=== PATIENT | male | born 1970 ===

== ENCOUNTER 2020-11-02 12:44 | Emergency (ER) | payer SELFPAY ==
--- NOTE | 2020-11-02 14:30 | Event Note ---
ED Screening Note ED Screening Note: Language line used for Portuguese interpretation Patient states that he went to a clinic due to having fatigue and generalized weakness for 15 days clinic: [facility] [place] He was sent by the clinic due to low hemoglobin and hematocrit He states during the last 2 weeks he has had chest pain twice but denies any chest pain currently He denies any fever, nausea, vomiting, diarrhea, cough, shortness of breath, hematochezia, melena, hematemesis, hematuria Past medical history of hypertension and previously used to take enalapril No allergies to medicines He is a non-smoker and nondrinker He has never been transfused in the past Hemoglobin on lab work report shows 5.9 This initial assessment/diagnostic orders/clinical plan/treatment(s) is/are subject to change based on patients health status, clinical progression and re- assessment by fellow clinical providers in the ED. Further treatment and workup at subsequent clinical providers discretion. Patient/guardian urged not to elope from the ED as their condition may be serious if not clinically assessed and managed. Initial orders include: Labs
[2020-11-02 15:33] LABS: Basophils % (Auto) 0.1 % (0.0-1.8); Eosinophils % (Auto) 0.5 % (0.0-4.3); Hematocrit 29.4 % (35.5-45.6); Hemoglobin 9.9 gm/dl (11.8-15.2); Lymphocytes # (Auto) 1.4 K/mm3 (1.2-5.4); Lymphocytes % (Auto) 22.3 % (13.4-35.0); Mean Corpuscular HGB Conc 34 % (32-34); Monocytes # (Auto) 0.3 K/mm3 (0.0-0.8); Monocytes % (Auto) 4.9 % (0.0-7.3); Platelet Count 161 K/mm3 (140-440); Red Blood Count 2.17 M/mm3 (3.65-5.03); Red Cell Distribution Width 16.4 % (13.2-15.2)
[2020-11-02 15:36] LABS: Mean Corpuscular Volume 135 fl (84-94)
[2020-11-02 15:55] LABS: Alanine Aminotransferase 22 units/L (7-56); Albumin 4.6 g/dL (3.9-5); BUN/Creatinine Ratio 16; Blood Urea Nitrogen 14 mg/dL (9-20); Calcium 9.2 mg/dL (8.4-10.2); Hemolysis Index 0
--- NOTE | 2020-11-02 15:58 | Emergency Department Report ---
ED Recheck HPI - General Chief Complaint: Recheck/Abnormal Lab/Rx Stated Complaint: STATE DOCTOR SENT OVER TO RECEIVE BLOOD Time Seen by Provider: 11/02/20 14:19 Source: asl interpreter Mode of arrival: Ambulatory Limitations: Language Barrier - History of Present Illness Initial Comments: 50-year-old male, history of hypertension, presents to ED due to abnormal blood work. Patient reports he has been having some generalized weakness for the last 3 weeks. Patient was seen in the clinic last week on 10/26/20 and had blood work done. Patient was called today to to the area results of hemoglobin of 5.9. Patient denies any bloody stool or dark-colored stools. He denies any previous history of anemia. He denies any syncopal episodes. Reports some mild dizziness. He denies any fever, chest pain, shortness of breath, diarrhea, vomiting. MD Complaint: abnormal lab -: week(s) (1) Returns Today for: CBOAL (Hb 5.9) Symptoms Since Prior Visit: no new symptoms Associated Symptoms: malaise. denies: fever, chills, chest pain, shortness of breath, nasuea, abdominal pain - Related Data Allergies Allergy/AdvReac Type Severity Reaction Status Date / Time No Known Allergies Allergy Unverified 11/02/20 12:51 ED Review of Systems ROS: Stated complaint: STATE DOCTOR SENT OVER TO RECEIVE BLOOD Other details as noted in HPI Comment: All other systems reviewed and negative Constitutional: malaise, weakness Respiratory: denies: cough, shortness of breath Cardiovascular: denies: chest pain Gastrointestinal: denies: abdominal pain, nausea, vomiting, diarrhea, hematemesis, melena, hematochezia ED Past Medical Hx - Past Medical History Hx Hypertension: Yes - Surgical History Additional Surgical History: UNSURE - Social History Smoking Status: Unknown if ever smoked ED Physical Exam - General Limitations: Language Barrier General appearance: alert, in no apparent distress - Head Head exam: Present: atraumatic, normocephalic - Eye Eye exam: Present: normal appearance, PERRL, EOMI - ENT ENT exam: Present: mucous membranes moist - Neck Neck exam: Present: normal inspection - Respiratory Respiratory exam: Present: normal lung sounds bilaterally. Absent: respiratory distress - Cardiovascular Cardiovascular Exam: Present: regular rate, normal rhythm - GI/Abdominal GI/Abdominal exam: Present: soft. Absent: distended, tenderness - Extremities Exam Extremities exam: Present: normal inspection - Neurological Exam Neurological exam: Present: alert, oriented X3 - Psychiatric Psychiatric exam: Present: normal affect, normal mood - Skin Skin exam: Present: warm, dry, intact, normal color ED Course Vital Signs 11/02/20 11/02/20 11/02/20 13:03 16:01 16:28 Temperature 99.3 F Pulse Rate 72 71 81 Respiratory 20 18 19 Rate Blood Pressure 153/85 Blood Pressure 134/81 141/71 [Right] O2 Sat by Pulse 97 98 98 Oximetry ED Recheck MDM - Medical Decision Making Patient anemic however hemoglobin is not 5, currently is 9.9. Patient is not orthostatic. Remainder of work-up is unremarkable. Patient advised to return for follow-up with his PCP. Critical care attestation.: If time is entered above; I have spent that time in minutes in the direct care of this critically ill patient, excluding procedure time. ED Disposition Clinical Impression: Generalized weakness Disposition: DC-01 TO HOME OR SELFCARE Is pt being admited?: No Condition: Stable Instructions: Fatigue, Weakness, [id number] Referrals: PRIMARY CARE, [Primary Care Provider] - 3-5 Days [facility] [Provider Group] - 3-5 Days Time of Disposition: 16:17 Print Language: HUNGARIAN
[2020-11-02 16:29] VITALS: BP 141/71
== END 2020-11-02 16:58 | disposition home or self-care (01) ==
LOC: ED 12:44
DX: R53.1 Weakness (principal); R42 Dizziness and giddiness
CPT/HCPCS: 36415; 80053; 85025; 86850; 86900; 86901; 99283

== ENCOUNTER 2021-05-09 21:38 | Inpatient (IN) | payer SELFPAY ==
[2021-05-09] MEDS ORDERED: cefTRIAXone/NS 1 GM/50 ML 1 GM/50 ML BAG IV ONE (21:50)
[2021-05-09] MEDS ORDERED: SODIUM CHLORIDE 0.9% 1000 ML 1,000 ML IV ONE (21:50)
[2021-05-09] MEDS ORDERED: ACETAMINOPHEN 500 MG TAB PO ONE (21:51)
[2021-05-09] MEDS ORDERED: ONDANSETRON 4 MG/2 ML INJ IV ONE (21:51)
[2021-05-09 22:08] LABS: Basophils % (Auto) 0.2 % (0.0-1.8); Eosinophils % (Auto) 0.2 % (0.0-4.3); Hematocrit 38.2 % (35.5-45.6); Hemoglobin 13.3 gm/dl (11.8-15.2); Lymphocytes # (Auto) 0.8 K/mm3 (1.2-5.4); Lymphocytes % (Auto) 20.3 % (13.4-35.0); Mean Corpuscular HGB Conc 35 % (32-34); Mean Corpuscular Volume 110 fl (84-94); Monocytes # (Auto) 0.3 K/mm3 (0.0-0.8); Monocytes % (Auto) 6.9 % (0.0-7.3); Platelet Count 166 K/mm3 (140-440); Red Blood Count 3.48 M/mm3 (3.65-5.03); Red Cell Distribution Width 17.8 % (13.2-15.2)
[2021-05-09] MEDS ORDERED: SODIUM CHLORIDE 0.9% 1000 ML IV SOLN IV ONE (22:16)
[2021-05-09 22:33] LABS: Alanine Aminotransferase 62 units/L (7-56); Blood Urea Nitrogen 10 mg/dL (9-20); Calcium 8.2 mg/dL (8.4-10.2); Hemolysis Index 13
[2021-05-09 22:35] LABS: BUN/Creatinine Ratio 14
--- NOTE | 2021-05-09 22:35 | Emergency Department Report ---
ED Fever HPI - General Chief Complaint: Fever Stated Complaint: CP Time Seen by Provider: 05/09/21 22:15 Source: patient Exam Limitations: language barrier (Belarusian speaking language line used) - History of Present Illness Initial Comments: 50-year-old Belarusian-speaking male with a past medical history of hypertension presents to the hospital complaining of fever and chills since yesterday afternoon. Occasional cough productive of phlegm and nausea reported. He also complains of mild shortness of breath and intermittent mild mid chest pain. He is unvaccinated for COVID. He denies vomiting, abdominal pain, or diarrhea. Has been noncompliant with his BP medication for the last 15 days ED Review of Systems ROS: Stated complaint: CP Other details as noted in HPI Comment: All other systems reviewed and negative ED Past Medical Hx - Past Medical History Hx Hypertension: Yes - Surgical History Additional Surgical History: UNSURE - Social History Smoking Status: Unknown if ever smoked ED Physical Exam - General Limitations: No Limitations - Other Other exam information: General: No acute distress Head: Atraumatic Eyes: normal appearance ENT: Moist mucous membranes Neck: Normal appearance, no midline tenderness Chest: Clear to auscultation bilaterally CV: Regular rate and rhythm Abdomen: Soft, normal bowel sounds, nontender, nondistended, no rebound or guarding Back: Normal inspection Extremity: Normal inspection, full range of motion Neuro: Alert O x 3, no facial asymmetry, speech clear, no gross motor sensory deficit Psych: Appropriate behavior Skin: No rash ED Course Vital Signs 05/09/21 05/09/21 21:45 22:54 Temperature 103.0 F H Pulse Rate 116 H 102 H Respiratory 20 16 Rate Blood Pressure 159/97 129/78 [Left] O2 Sat by Pulse 92 96 Oximetry ED Medical Decision Making - Lab Data Result diagrams: 05/09/21 21:57 05/09/21 21:57 - EKG Data -: EKG Interpreted by Me (priyank) EKG shows normal: sinus rhythm, ST-T waves (no stemi) Rate: tachycardia (110) - Radiology Data Radiology results: report reviewed CHEST 1 VIEW 05/09/2021 10:39 PM INDICATION / CLINICAL INFORMATION: cp cough fever. COMPARISON: None available. FINDINGS: SUPPORT DEVICES: None. HEART / MEDIASTINUM: No significant abnormality. LUNGS / PLEURA: Hazy multifocal pulmonary opacities in both lungs. No pneumothorax. ADDITIONAL FINDINGS: No significant additional findings. IMPRESSION: 1. Hazy bilateral pulmonary opacities may represent atypical/viral pneumonia. - Medical Decision Making 50 yo Belarusian-speaking male presents to the hospital with fever, chills, and shortness of breath. X-ray shows atypical pneumonia highly suggestive of COVID. Patient has an ambulatory saturation of 91% with significant dyspnea. Given patient's risk factors and ambulatory hypoxia patient meets criteria for admission. He was treated with Rocephin, azithromycin, and Decadron. Mild hyperglycemia noted without previous history of diabetes. Hemoglobin A1c ordered. COVID order set ordered. Sepsis order set ordered with 30 mill KG bolus of normal saline given mild elevated lactic acid. Hospitalist to admit Critical Care Time: No Critical care attestation.: If time is entered above; I have spent that time in minutes in the direct care of this critically ill patient, excluding procedure time. ED Disposition Clinical Impression: Bilateral pneumonia, Suspected COVID-19 virus infection, Acute respiratory failure with hypoxia, HTN (hypertension), Hyperglycemia, Obesity, COVID-19 vaccination not done Disposition: 09 ADMITTED INPATIENT Is pt being admited?: Yes Condition: Stable Instructions: Bacterial Pneumonia (ED), Hypertension (ED) Time of Disposition: 23:52
[2021-05-09] MEDS ORDERED: AZITHROMYCIN/NS 500 MG/250 ML 500 MG/250 ML BAG IV ONE (22:51)
--- NOTE | 2021-05-09 23:14 | XRay Report ---
CHEST 1 VIEW 05/09/2021 10:39 PM INDICATION / CLINICAL INFORMATION: cp cough fever. COMPARISON: None available. FINDINGS: SUPPORT DEVICES: None. HEART / MEDIASTINUM: No significant abnormality. LUNGS / PLEURA: Hazy multifocal pulmonary opacities in both lungs. No pneumothorax. ADDITIONAL FINDINGS: No significant additional findings. IMPRESSION: 1. Hazy bilateral pulmonary opacities may represent atypical/viral pneumonia. Signer Name: Anjana Wilson MD Signed: 05/09/2021 11:10 PM Workstation Name: [id number]
[2021-05-09] MEDS ORDERED: dexAMETHasone 4 MG/ML VIAL IV ONE (23:28)
[2021-05-10] MEDS ORDERED: HYDROmorphone 1 MG/1 ML INJ IV PRN (01:01)
[2021-05-10] MEDS ORDERED: ALBUTEROL 2.5 MG/3 ML NEBU IH PRN (01:01)
[2021-05-10] MEDS ORDERED: ACETAMINOPHEN 325 MG TAB PO PRN (01:01)
[2021-05-10] MEDS ORDERED: MORPHINE 2 MG/1 ML INJ IV PRN (01:01)
[2021-05-10] MEDS ORDERED: ONDANSETRON 4 MG/2 ML INJ IV PRN (01:01)
[2021-05-10] MEDS ORDERED: hydrALAZINE 20 MG/1 ML INJ IV PRN (01:03)
--- NOTE | 2021-05-10 01:08 | History and Physical Report ---
History of Present Illness Date of examination: 05/10/21 Date of admission: 05/10/21 Chief complaint: Fever cough History of present illness: 50-year-old male with history of hypertension presents to the hospital complaining of fever and chills since yesterday afternoon. Occasional cough productive of phlegm and nausea reported. He also complains of mild shortness of breath and intermittent mild mid chest pain. He is unvaccinated for COVID. He denies vomiting, abdominal pain, or diarrhea. Has been noncompliant with his BP medication for the last 15 days In the emergency room patient lactic acid is 2.20, chest x-ray shows hazy bilateral pulmonary opacities may represent atypical/viral pneumonia.Patient has an ambulatory saturation of 91% with significant dyspnea. Given patient's risk factors and ambulatory hypoxia patient meets criteria for admission. He was treated with Rocephin, azithromycin, and Decadron. Past History Past Medical History: hypertension Medications and Allergies Allergies Allergy/AdvReac Type Severity Reaction Status Date / Time No Known Allergies Allergy Unverified 11/02/20 12:51 Review of Systems Constitutional: fever, chills Cardiovascular: shortness of breath, dyspnea on exertion Respiratory: cough, cough with sputum, shortness of breath, dyspnea on exertion Gastrointestinal: nausea Exam - Constitutional Vitals: Temp Pulse Resp BP Pulse Ox 103.0 F H 102 H 16 129/78 96 05/09/21 21:45 05/09/21 22:54 05/09/21 22:54 05/09/21 22:54 05/09/21 22:54 General appearance: Present: no acute distress, well-nourished - EENT Eyes: Present: PERRL ENT: hearing intact, clear oral mucosa - Neck Neck: Present: supple, normal ROM - Respiratory Respiratory effort: normal Respiratory: bilateral: diminished - Cardiovascular Heart Sounds: Present: S1 & S2. Absent: rub, click - Extremities Extremities: pulses symmetrical, No edema Peripheral Pulses: within normal limits - Abdominal General gastrointestinal: Present: soft, non-tender, non-distended, normal bowel sounds Male genitourinary: Present: normal - Integumentary Integumentary: Present: clear, warm, dry - Musculoskeletal Musculoskeletal: gait normal, strength equal bilaterally - Psychiatric Psychiatric: appropriate mood/affect, intact judgment & insight - Neurologic Neurologic: CNII-XII intact, moves all extremities HEART Score - HEART Score Troponin: Troponin T < 0.010 ng/mL (0.00-0.029) 05/09/21 21:57 Results - Labs CBC & Chem 7: 05/09/21 21:57 05/10/21 00:05 Labs: Laboratory Last Values WBC 4.1 K/mm3 (4.5-11.0) L 05/09/21 21:57 RBC 3.48 M/mm3 (3.65-5.03) L 05/09/21 21:57 Hgb 13.3 gm/dl (11.8-15.2) 05/09/21 21:57 Hct 38.2 % (35.5-45.6) 05/09/21 21:57 MCV 110 fl (84-94) H 05/09/21 21:57 MCH 38 pg (28-32) H 05/09/21 21:57 MCHC 35 % (32-34) H 05/09/21 21:57 RDW 17.8 % (13.2-15.2) H 05/09/21 21:57 Plt Count 166 K/mm3 (140-440) 05/09/21 21:57 Lymph % (Auto) 20.3 % (13.4-35.0) 05/09/21 21:57 [place] % (Auto) 6.9 % (0.0-7.3) 05/09/21 21:57 Eos % (Auto) 0.2 % (0.0-4.3) 05/09/21 21:57 Baso % (Auto) 0.2 % (0.0-1.8) 05/09/21 21:57 Lymph # (Auto) 0.8 K/mm3 (1.2-5.4) L 05/09/21 21:57 [place] # (Auto) 0.3 K/mm3 (0.0-0.8) 05/09/21 21:57 Eos # (Auto) 0.0 K/mm3 (0.0-0.4) 05/09/21 21:57 Baso # (Auto) 0.0 K/mm3 (0.0-0.1) 05/09/21 21:57 Seg Neutrophils % 72.4 % (40.0-70.0) H 05/09/21 21:57 Seg Neutrophils # 3.0 K/mm3 (1.8-7.7) 05/09/21 21:57 D-Dimer 343.46 ng/mlDDU (0-234) H 05/10/21 00:05 Sodium 134 mmol/L (137-145) L 05/09/21 21:57 Potassium 3.6 mmol/L (3.6-5.0) 05/09/21 21:57 Chloride 97.3 mmol/L (98-107) L 05/09/21 21:57 Carbon Dioxide 20 mmol/L (22-30) L 05/09/21 21:57 Anion Gap 20 mmol/L 05/09/21 21:57 BUN 10 mg/dL (9-20) 05/09/21 21:57 Creatinine 0.7 mg/dL (0.8-1.3) L 05/09/21 21:57 Estimated GFR > 60 ml/min 05/09/21 21:57 BUN/Creatinine Ratio 14 % 05/09/21 21:57 Glucose 203 mg/dL (75-100) H 05/10/21 00:05 Lactic Acid 1.60 mmol/L (0.7-2.0) 05/10/21 00:05 Calcium 8.2 mg/dL (8.4-10.2) L 05/09/21 21:57 Total Bilirubin 0.60 mg/dL (0.1-1.2) 05/09/21 21:57 AST 49 units/L (5-40) H 05/09/21 21:57 ALT 62 units/L (7-56) H 05/09/21 21:57 Alkaline Phosphatase 84 units/L (35-129) 05/09/21 21:57 Troponin T < 0.010 ng/mL (0.00-0.029) 05/09/21 21:57 Total Protein 7.5 g/dL (6.3-8.2) 05/09/21 21:57 Albumin 4.0 g/dL (3.9-5) 05/09/21 21:57 Albumin/Globulin Ratio 1.1 % 05/09/21 21:57 Microbiology: Microbiology 05/09/21 21:57 Peripheral/Venous Blood Culture - Preliminary Culture in Progress 05/09/21 21:57 Peripheral/Venous Blood Culture - Preliminary Culture in Progress - Imaging and Cardiology Chest x-ray: report reviewed Assessment and Plan VTE prophylaxis?: Chemical Plan of care discussed with patient/family: Yes - Patient Problems (1) Acute respiratory failure with hypoxia Current Visit: Yes Status: Acute Plan to address problem: Admit the patient to the medical floor. Oxygen via nc 3 L/min. DuoNeb by nebulizer every 4 hours. Albuterol via nebulizer every 4 hours as needed. Decadron 6 mg IV daily. We will send a COVID PCR. We will consult infectious disease evaluation (2) Pneumonia Current Visit: Yes Status: Acute Plan to address problem: Rocephin 2 g IV daily. Zithromax 500 mg IV daily. We will do the blood culture and sputum culture. Send COVID PCR. Follow COVID inflammatory marker. Consult infectious disease (3) COVID-19 virus infection Current Visit: Yes Status: Acute Plan to address problem: Oxygen via nc 3 L/min. DuoNeb by nebulizer every 4 hours. Albuterol via nebulizer every 4 hours as needed. Decadron 6 mg IV daily. We will send a COVID PCR. We will consult infectious disease evaluation (4) Hypertension Current Visit: Yes Status: Acute Plan to address problem: Hydralazine 10 mg IV every 6 hours as needed. We continue the home medication. We monitor the blood pressure closely (5) DVT prophylaxis Current Visit: Yes Status: Acute Plan to address problem: Heparin 5000 units subcu every 8 hours for DVT prophylaxis. Pepcid 20 mg p.o. twice daily for GI prophylaxis. Patient is a full code
[2021-05-10] MEDS: IPRATROPIUM/ALBUTEROL SULFATE 3 ML AMPUL.NEB IH SCH ×4 (02:11→23:00)
[2021-05-10 02:43] LABS: C-Reactive Protein 4.5 mg/dL (0.00-1.30)
[2021-05-10] MEDS: HEPARIN 5,000 UNIT/1 ML VIAL SUB-Q SCH ×3 (06:49→22:30)
[2021-05-10] MEDS: FAMOTIDINE 20 MG TAB PO SCH ×2 (10:15→23:01)
[2021-05-10] MEDS ORDERED: cefTRIAXone/NS 2 GM/100 ML 2 GM/100 ML BAG IV SCH (22:00)
[2021-05-10] MEDS ORDERED: dexAMETHasone 4 MG/ML VIAL IV SCH (22:00)
[2021-05-10] MEDS ORDERED: AZITHROMYCIN/NS 500 MG/250 ML 500 MG/250 ML BAG IV SCH (22:00)
[2021-05-10] MEDS ORDERED: AZITHROMYCIN 250 MG TAB PO SCH (22:00)
[2021-05-11] MEDS: IPRATROPIUM/ALBUTEROL SULFATE 3 ML AMPUL.NEB IH SCH ×5 (02:35→20:29)
[2021-05-11 05:24] LABS: Hematocrit 38.3 % (35.5-45.6); Hemoglobin 13.1 gm/dl (11.8-15.2); Lymphocytes # (Auto) 0.5 K/mm3 (1.2-5.4); Lymphocytes % (Auto) 11.7 % (13.4-35.0); Mean Corpuscular HGB Conc 34 % (32-34); Mean Corpuscular Volume 110 fl (84-94); Monocytes # (Auto) 0.2 K/mm3 (0.0-0.8); Monocytes % (Auto) 4.4 % (0.0-7.3); Platelet Count 187 K/mm3 (140-440); Red Blood Count 3.48 M/mm3 (3.65-5.03); Red Cell Distribution Width 17.9 % (13.2-15.2)
[2021-05-11 05:42] LABS: BUN/Creatinine Ratio 22; Blood Urea Nitrogen 13 mg/dL (9-20); Calcium 8.5 mg/dL (8.4-10.2); Hemolysis Index 1
[2021-05-11] MEDS: HEPARIN 5,000 UNIT/1 ML VIAL SUB-Q SCH ×2 (06:00→14:00)
[2021-05-11] MEDS: FAMOTIDINE 20 MG TAB PO SCH (09:46)
[2021-05-11] MEDS: DEXAMETHASONE 4 MG TAB PO SCH (09:46)
--- NOTE | 2021-05-11 10:06 | Progress Note ---
Assessment and Plan - Patient Problems (1) Acute respiratory failure with hypoxia Current Visit: Yes Status: Acute Plan to address problem: Admit the patient to the medical floor. Oxygen via nc 3 L/min. DuoNeb by nebulizer every 4 hours. Albuterol via nebulizer every 4 hours as needed. Decadron 6 mg IV daily. We will send a COVID PCR. We will consult infectious disease evaluation (2) Pneumonia Current Visit: Yes Status: Acute Plan to address problem: Rocephin 2 g IV daily. Zithromax 500 mg IV daily. We will do the blood culture and sputum culture. Send COVID PCR. Follow COVID inflammatory marker. Consult infectious disease (3) COVID-19 virus infection Current Visit: Yes Status: Acute Plan to address problem: Oxygen via nc 3 L/min. DuoNeb by nebulizer every 4 hours. Albuterol via nebulizer every 4 hours as needed. Decadron 6 mg IV daily. We will send a COVID PCR. We will consult infectious disease evaluation (4) Hypertension Current Visit: Yes Status: Acute Plan to address problem: Hydralazine 10 mg IV every 6 hours as needed. We continue the home medication. We monitor the blood pressure closely (5) DVT prophylaxis Current Visit: Yes Status: Acute Plan to address problem: Heparin 5000 units subcu every 8 hours for DVT prophylaxis. Pepcid 20 mg p.o. twice daily for GI prophylaxis. Patient is a full code Subjective Date of service: 05/11/21 Interval history: 50-year-old male with history of hypertension presents to the hospital complaining of fever and chills since yesterday afternoon. Occasional cough productive of phlegm and nausea reported. He also complains of mild shortness of breath and intermittent mild mid chest pain. He is unvaccinated for COVID. He denies vomiting, abdominal pain, or diarrhea. Has been noncompliant with his BP medication for the last 15 days In the emergency room patient lactic acid is 2.20, chest x-ray shows hazy bilateral pulmonary opacities may represent atypical/viral pneumonia.Patient has an ambulatory saturation of 91% with significant dyspnea. Given patient's risk factors and ambulatory hypoxia patient meets criteria for admission. He was treated with Rocephin, azithromycin, and Decadron. Objective - Constitutional Vitals: Vital Signs - 12hr 05/10/21 05/10/2122 22:15 22:31 22:45 Temperature Pulse Rate Respiratory Rate Blood Pressure 102/60 106/63 106/63 Blood Pressure [Left] O2 Sat by Pulse 100 97 97 Oximetry 05/10/21 05/10/21 05/10/21 23:01 23:15 23:31 Temperature Pulse Rate Respiratory Rate Blood Pressure 106/63 106/63 106/63 Blood Pressure [Left] O2 Sat by Pulse 99 98 99 Oximetry 05/10/21 05/11/21 05/11/21 23:45 00:01 00:15 Temperature Pulse Rate Respiratory Rate Blood Pressure 106/63 92/49 92/49 Blood Pressure [Left] O2 Sat by Pulse 100 99 99 Oximetry 05/11/21 05/11/21 05/11/21 00:31 00:45 01:01 Temperature Pulse Rate Respiratory Rate Blood Pressure 92/49 92/49 92/49 Blood Pressure [Left] O2 Sat by Pulse 99 98 98 Oximetry 05/11/21 05/11/21 05/11/21 01:15 01:31 01:45 Temperature Pulse Rate Respiratory Rate Blood Pressure 92/49 100/54 100/54 Blood Pressure [Left] O2 Sat by Pulse 99 97 99 Oximetry 05/11/21 05/11/21 05/11/21 02:01 02:15 02:30 Temperature Pulse Rate Respiratory Rate Blood Pressure 100/54 100/54 100/54 Blood Pressure [Left] O2 Sat by Pulse 97 94 95 Oximetry 05/11/21 05/11/21 05/11/21 02:45 03:00 03:15 Temperature Pulse Rate Respiratory Rate Blood Pressure 100/54 100/54 95/49 Blood Pressure [Left] O2 Sat by Pulse 95 97 97 Oximetry 05/11/21 05/11/21 05/11/21 03:30 03:45 04:00 Temperature Pulse Rate Respiratory Rate Blood Pressure 95/49 101/60 101/60 Blood Pressure [Left] O2 Sat by Pulse 96 92 97 Oximetry 05/11/21 05/11/21 05/11/21 04:15 04:30 04:45 Temperature Pulse Rate Respiratory Rate Blood Pressure 110/65 110/65 110/65 Blood Pressure [Left] O2 Sat by Pulse 97 100 96 Oximetry 05/11/21 05/11/21 05/11/21 05:00 05:15 05:30 Temperature Pulse Rate Respiratory Rate Blood Pressure 110/65 103/55 103/55 Blood Pressure [Left] O2 Sat by Pulse 98 100 98 Oximetry 05/11/21 05/11/21 05/11/21 05:45 06:00 06:16 Temperature Pulse Rate Respiratory Rate Blood Pressure 105/55 105/55 113/63 Blood Pressure [Left] O2 Sat by Pulse 97 95 95 Oximetry 05/11/21 05/11/21 05/11/21 06:30 06:45 06:53 Temperature 98.6 F Pulse Rate 58 L Respiratory 18 Rate Blood Pressure 112/58 119/50 Blood Pressure 119/50 [Left] O2 Sat by Pulse 90 99 Oximetry 05/11/21 05/11/21 05/11/21 07:00 07:16 07:30 Temperature Pulse Rate Respiratory Rate Blood Pressure 113/59 113/59 111/54 Blood Pressure [Left] O2 Sat by Pulse 98 97 94 Oximetry 05/11/21 05/11/21 05/11/21 07:46 08:00 08:16 Temperature Pulse Rate Respiratory Rate Blood Pressure 111/54 106/51 106/51 Blood Pressure [Left] O2 Sat by Pulse 93 96 96 Oximetry - Labs CBC & Chem 7: 05/11/21 04:30 05/11/21 04:30 Labs: Abnormal lab results 05/10/21 05/11/21 05/11/21 Range/Units Unknown 04:30 04:30 RBC 3.48 L (3.65-5.03) M/mm3 MCV 110 H (84-94) fl MCH 38 H (28-32) pg RDW 17.9 H (13.2-15.2) % Lymph % (Auto) 11.7 L (13.4-35.0) % Lymph # (Auto) 0.5 L (1.2-5.4) K/mm3 Seg Neutrophils % 83.9 H (40.0-70.0) % Carbon Dioxide 21 L (22-30) mmol/L Creatinine 0.6 L (0.8-1.3) mg/dL Glucose 160 H (75-100) mg/dL Coronavirus (PCR) Positive A (Negative) HEART Score - HEART Score Troponin: Troponin T < 0.010 ng/mL (0.00-0.029) 05/09/21 21:57
--- NOTE | 2021-05-11 14:16 | Consultation ---
History of Present Illness - Reason for Consult Consult date: 05/11/21 COVID Requesting physician: MAKENZIE LANTIGUA - History of Present Illness The patient is a 50-year-old male with hypertension admitted with COVID-19 pneumonia and hypoxia. Labs showed leukopenia, procalcitonin 0.06, CRP 4.5, LDH 253. Review of Systems: reviewed in the chart, unable to obtain, minimize risk of transmission Past History Past Medical History: hypertension Medications and Allergies Allergies Allergy/AdvReac Type Severity Reaction Status Date / Time No Known Allergies Allergy Verified 05/10/21 01:04 Active Meds: Active Medications Acetaminophen (Acetaminophen 325 Mg Tab) 650 mg PO Q4H PRN PRN Reason: Pain MILD(1-3)/Fever >100.5/AVITIA Albuterol (Albuterol 2.5 Mg/3 Ml Nebu) 2.5 mg IH Q4HRT PRN PRN Reason: Shortness Of Breath Albuterol/Ipratropium (Ipratropium/Albuterol Sulfate 3 Ml Ampul.Neb) 1 ampul IH Q6HRT [facility] Last Admin: 05/11/21 08:46 Dose: Not Given Dexamethasone (Dexamethasone 4 Mg Tab) 6 mg PO DAILY [facility] Stop: 05/18/21 10:01 Last Admin: 05/11/21 09:46 Dose: 6 mg Famotidine (Famotidine 20 Mg Tab) 20 mg PO BID [facility] Last Admin: 05/11/21 09:46 Dose: 20 mg Heparin Sodium (Porcine) (Heparin 5,000 Unit/1 Ml Vial) 5,000 unit SUB-Q Q8HR [facility] Last Admin: 05/11/21 06:00 Dose: 5,000 unit Hydralazine HCl (Hydralazine 20 Mg/1 Ml Inj) 10 mg IV Q6H PRN PRN Reason: Blood Pressure Hydromorphone HCl (Hydromorphone 1 Mg/1 Ml Inj) 0.5 mg IV Q3H PRN PRN Reason: Pain , Severe (7-10) Morphine Sulfate (Morphine 2 Mg/1 Ml Inj) 2 mg IV Q4H PRN PRN Reason: Pain, Moderate (4-6) Ondansetron HCl (Ondansetron 4 Mg/2 Ml Inj) 4 mg IV Q8H PRN PRN Reason: Nausea And Vomiting Sodium Chloride (Sodium Chloride 0.9% 10 Ml Flush Syringe) 10 ml IV BID [facility] Last Admin: 05/11/21 09:46 Dose: 10 ml Sodium Chloride (Sodium Chloride 0.9% 10 Ml Flush Syringe) 10 ml IV PRN PRN PRN Reason: LINE FLUSH Physical Examination - Physical Exam Narrative exam: Physical Exam (reviewed in chart to minimize risk of transmission) Constitutional: deferred Head, Ears, Nose: deferred Eyes: deferred Neck: deferred Oral: deferred Cardiovascular: deferred Respiratory: deferred GI: deferred Musculoskeletal: deferred Skin: deferred Hem/Lymphatic: deferred Psych: deferred Neurological: deferred - Constitutional Vitals: Vital Signs Temp Pulse Resp BP Pulse Ox 98.6 F 58 L 18 106/51 96 05/11/21 06:53 05/11/21 06:53 05/11/21 06:53 05/11/21 08:16 05/11/21 08:16 Temperature -Last 24 Hours Temperature 98.6 F Temperature 98.0 F Results - Labs CBC & Chem 7: 05/11/21 04:30 05/11/21 04:30 Labs: Abnormal lab results 05/11/21 05/11/21 Range/Units 04:30 04:30 RBC 3.48 L (3.65-5.03) M/mm3 MCV 110 H (84-94) fl MCH 38 H (28-32) pg RDW 17.9 H (13.2-15.2) % Lymph % (Auto) 11.7 L (13.4-35.0) % Lymph # (Auto) 0.5 L (1.2-5.4) K/mm3 Seg Neutrophils % 83.9 H (40.0-70.0) % Carbon Dioxide 21 L (22-30) mmol/L Creatinine 0.6 L (0.8-1.3) mg/dL Glucose 160 H (75-100) mg/dL - Imaging and Cardiology Chest x-ray: report reviewed (b/l pna) Assessment and Plan Cultures: SARS CoV2 PCR: Positive 05/09/2021 blood culture: No growth A/P: 50/M with HTN: #Bilateral pneumonia: Secondary to COVID-19 #Acute hypoxic respiratory failure: Due to above. Requiring nasal cannula. Recs: -IV/PO Dexamethasone x 10 days -IV remdesivir x 5 days ordered -prophylactic anticoagulation based on d-dimer per hospital protocol -procalcitonin is low, abx not needed -ambulatory sats for discharge planning in 1-2 days if he improves Will sign off. Cathi Smith MD, FACP, [facility] O: [phone] F: [phone]
[2021-05-11] MEDS ORDERED: REMDESIVIR 200 MG in SODIUM CHLORIDE 0.9% 250ML 250 ML IV ONE (16:00)
[2021-05-11 16:27] LABS: Alanine Aminotransferase 46 units/L (7-56); Albumin 3.7 g/dL (3.9-5); Blood Urea Nitrogen 19 mg/dL (9-20); Calcium 8.7 mg/dL (8.4-10.2); Hemolysis Index 8
[2021-05-11 16:29] LABS: BUN/Creatinine Ratio 27
[2021-05-11] MEDS ORDERED: SODIUM CHLORIDE 0.9% 50 ML IVPB IV SCH (16:30)
--- NOTE | 2021-05-12 02:14 | Progress Note ---
Assessment and Plan - Patient Problems (1) Acute respiratory failure with hypoxia Current Visit: Yes Status: Acute Plan to address problem: Admit the patient to the medical floor. Oxygen via nc 3 L/min. DuoNeb by nebulizer every 4 hours. Albuterol via nebulizer every 4 hours as needed. Decadron 6 mg IV daily. We will send a COVID PCR. We will consult infectious disease evaluation (2) Pneumonia Current Visit: Yes Status: Acute Plan to address problem: Rocephin 2 g IV daily. Zithromax 500 mg IV daily. We will do the blood culture and sputum culture. Send COVID PCR. Follow COVID inflammatory marker. Consult infectious disease (3) COVID-19 virus infection Current Visit: Yes Status: Acute Plan to address problem: Oxygen via nc 3 L/min. DuoNeb by nebulizer every 4 hours. Albuterol via nebulizer every 4 hours as needed. Decadron 6 mg IV daily. We will send a COVID PCR. We will consult infectious disease evaluation (4) Hypertension Current Visit: Yes Status: Acute Plan to address problem: Hydralazine 10 mg IV every 6 hours as needed. We continue the home medication. We monitor the blood pressure closely (5) DVT prophylaxis Current Visit: Yes Status: Acute Plan to address problem: Heparin 5000 units subcu every 8 hours for DVT prophylaxis. Pepcid 20 mg p.o. twice daily for GI prophylaxis. Patient is a full code Subjective Date of service: 05/11/21 Interval history: 50-year-old male with history of hypertension presents to the hospital complaining of fever and chills since yesterday afternoon. Occasional cough productive of phlegm and nausea reported. He also complains of mild shortness of breath and intermittent mild mid chest pain. He is unvaccinated for COVID. He denies vomiting, abdominal pain, or diarrhea. Has been noncompliant with his BP medication for the last 15 days In the emergency room patient lactic acid is 2.20, chest x-ray shows hazy bilateral pulmonary opacities may represent atypical/viral pneumonia.Patient has an ambulatory saturation of 91% with significant dyspnea. Given patient's risk factors and ambulatory hypoxia patient meets criteria for admission. He was treated with Rocephin, azithromycin, and Decadron. Objective - Constitutional Vitals: Vital Signs - 12hr 05/11/21 05/11/2122 17:42 17:46 18:00 Temperature Pulse Rate Respiratory Rate Blood Pressure 108/67 110/57 98/59 Blood Pressure [Left] O2 Sat by Pulse 95 99 98 Oximetry 05/11/21 05/11/21 05/11/21 18:16 18:18 18:19 Temperature 98.4 F Pulse Rate 63 Respiratory 17 17 Rate Blood Pressure 98/59 Blood Pressure 98/59 [Left] O2 Sat by Pulse 99 98 98 Oximetry 05/11/21 05/11/21 05/11/21 18:30 18:46 19:00 Temperature Pulse Rate Respiratory Rate Blood Pressure 98/59 98/59 98/59 Blood Pressure [Left] O2 Sat by Pulse 100 99 87 Oximetry 05/11/21 05/11/21 05/11/21 19:16 19:30 19:46 Temperature Pulse Rate Respiratory Rate Blood Pressure 98/59 98/59 98/59 Blood Pressure [Left] O2 Sat by Pulse 100 100 100 Oximetry 05/11/21 05/11/21 05/11/21 20:00 20:16 20:26 Temperature Pulse Rate Respiratory Rate Blood Pressure 116/56 116/56 Blood Pressure [Left] O2 Sat by Pulse 99 100 96 Oximetry 05/11/21 05/11/21 05/11/21 20:30 20:46 21:00 Temperature Pulse Rate Respiratory Rate Blood Pressure 116/56 116/56 116/56 Blood Pressure [Left] O2 Sat by Pulse 100 100 99 Oximetry 05/11/21 05/11/21 05/11/21 21:16 21:30 21:39 Temperature 99.1 F Pulse Rate 59 L Respiratory 17 Rate Blood Pressure 116/56 116/56 Blood Pressure 111/64 [Left] O2 Sat by Pulse 100 97 99 Oximetry 05/11/21 05/11/21 05/11/21 21:40 21:50 22:00 Temperature Pulse Rate Respiratory Rate Blood Pressure 111/64 111/64 113/59 Blood Pressure [Left] O2 Sat by Pulse 98 96 100 Oximetry 05/11/21 22:41 Temperature 98.6 F Pulse Rate 66 Respiratory 18 Rate Blood Pressure 119/63 Blood Pressure [Left] O2 Sat by Pulse 94 Oximetry General appearance: Present: no acute distress, well-nourished - EENT Eyes: PERRL, EOM intact ENT: hearing intact, clear oral mucosa Ears: bilateral: normal - Neck Neck: supple, normal ROM - Respiratory Respiratory effort: normal Respiratory: bilateral: CTA - Breasts Breasts: normal - Cardiovascular Rhythm: regular Heart Sounds: Present: S1 & S2. Absent: gallop, rub Extremities: pulses intact, No edema, normal color, Full ROM - Gastrointestinal General gastrointestinal: Present: soft, non-tender, non-distended, normal bowel sounds - Genitourinary Male genitourinary: normal - Integumentary Integumentary: clear, warm, dry - Musculoskeletal Musculoskeletal: 1, strength equal bilaterally - Neurologic Neurologic: moves all extremities - Psychiatric Psychiatric: memory intact, appropriate mood/affect, intact judgment & insight - Labs CBC & Chem 7: 05/11/21 04:30 05/11/21 15:30 Labs: Abnormal lab results 05/11/21 05/11/21 05/11/21 Range/Units 04:30 04:30 15:30 RBC 3.48 L (3.65-5.03) M/mm3 MCV 110 H (84-94) fl MCH 38 H (28-32) pg RDW 17.9 H (13.2-15.2) % Lymph % (Auto) 11.7 L (13.4-35.0) % Lymph # (Auto) 0.5 L (1.2-5.4) K/mm3 Seg Neutrophils % 83.9 H (40.0-70.0) % Carbon Dioxide 21 L 20 L (22-30) mmol/L Creatinine 0.6 L 0.7 L (0.8-1.3) mg/dL Glucose 160 H 234 H (75-100) mg/dL Albumin 3.7 L (3.9-5) g/dL HEART Score - HEART Score Troponin: Troponin T < 0.010 ng/mL (0.00-0.029) 05/09/21 21:57
[2021-05-12] MEDS: FAMOTIDINE 20 MG TAB PO SCH ×2 (02:15→10:12)
[2021-05-12] MEDS: HEPARIN 5,000 UNIT/1 ML VIAL SUB-Q SCH ×3 (02:15→17:32)
[2021-05-12] MEDS: IPRATROPIUM/ALBUTEROL SULFATE 3 ML AMPUL.NEB IH SCH (05:01)
[2021-05-12 08:21] LABS: Alanine Aminotransferase 42 units/L (7-56); Albumin 3.7 g/dL (3.9-5); Blood Urea Nitrogen 20 mg/dL (9-20); Calcium 8.4 mg/dL (8.4-10.2); Hemolysis Index 2
[2021-05-12 08:22] LABS: BUN/Creatinine Ratio 29
--- NOTE | 2021-05-12 09:19 | Electrocardiograph Report ---
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
[2021-05-12] MEDS: DEXAMETHASONE 4 MG TAB PO SCH (10:12)
--- NOTE | 2021-05-12 15:29 | Progress Note ---
Assessment and Plan Cultures: SARS CoV2 PCR: Positive 05/09/2021 blood culture: No growth A/P: 50/M with HTN: #Bilateral pneumonia: Secondary to COVID-19 #Acute hypoxic respiratory failure: Due to above. Requiring nasal cannula. Recs: -continue IV/PO Dexamethasone x 10 days -continue IV remdesivir x 5 days -CRP low, not a candidate for Actemra -prophylactic anticoagulation based on d-dimer per hospital protocol -procalcitonin is low, abx not needed Will sign off. Cathi Smith MD, FACP, [facility] O: [phone] F: [phone] Subjective Date of service: 05/12/21 Interval history: No fever. On oxygen. Objective - Exam Narrative Exam: Physical Exam (reviewed in chart to minimize risk of transmission) Constitutional: deferred Head, Ears, Nose: deferred Eyes: deferred Neck: deferred Oral: deferred Cardiovascular: deferred Respiratory: deferred GI: deferred Musculoskeletal: deferred Skin: deferred Hem/Lymphatic: deferred Psych: deferred Neurological: deferred - Constitutional Vitals: Vital Signs Temp Pulse Resp BP Pulse Ox 98.7 F 59 L 22 119/64 94 05/12/21 12:20 05/12/21 12:20 05/12/21 12:20 05/12/21 12:20 05/12/21 12:20 Temperature -Last 24 Hours Temperature 98.7 F Temperature 98.2 F Temperature 98.6 F Temperature 99.1 F Temperature 98.4 F - Labs CBC & Chem 7: 05/11/21 04:30 05/12/21 07:25 Labs: Abnormal lab results 05/11/21 05/12/21 Range/Units 15:30 07:25 Potassium 3.3 L (3.6-5.0) mmol/L Chloride 108.3 H (98-107) mmol/L Carbon Dioxide 20 L 20 L (22-30) mmol/L Creatinine 0.7 L 0.7 L (0.8-1.3) mg/dL Glucose 234 H 143 H (75-100) mg/dL Albumin 3.7 L 3.7 L (3.9-5) g/dL
--- NOTE | 2021-05-12 18:21 | Discharge Summary ---
Providers - Providers Date of Admission: 05/10/21 01:01 Date of discharge: 05/12/21 Attending physician: IDANIA LEIVA 05/09/21 23:47 Consult to Physician [CONS] Urgent Comment: Consulting Provider: ALEXIS COFFMAN Physician Instructions: Reason For Exam: covid pneumonia, hypoxia Primary care physician: [employer] Hospitalization Condition: Stable Disposition: 01 HOME / SELF CARE / HOMELESS Core Measure Documentation - Palliative Care Palliative Care/ Comfort Measures: Not Applicable - Core Measures Any of the following diagnoses?: none Exam - Constitutional Vitals: Temp Pulse Resp BP Pulse Ox 98.7 F 59 L 22 119/64 94 05/12/21 12:20 05/12/21 12:20 05/12/21 12:20 05/12/21 12:20 05/12/21 12:20 General appearance: Present: no acute distress, well-nourished - EENT Eyes: Present: PERRL ENT: hearing intact, clear oral mucosa - Neck Neck: Present: supple, normal ROM - Respiratory Respiratory effort: normal Respiratory: bilateral: CTA - Cardiovascular Heart Sounds: Present: S1 & S2. Absent: rub, click - Extremities Extremities: pulses symmetrical, No edema Peripheral Pulses: within normal limits - Abdominal General gastrointestinal: Present: soft, non-tender, non-distended, normal bowel sounds Male genitourinary: Present: normal - Integumentary Integumentary: Present: clear, warm, dry - Musculoskeletal Musculoskeletal: gait normal, strength equal bilaterally - Psychiatric Psychiatric: appropriate mood/affect, intact judgment & insight - Neurologic Neurologic: CNII-XII intact, moves all extremities Plan Follow up with: PRIMARY CARE, [Primary Care Provider] - 7 Days
[2021-05-12 19:26] VITALS: BP 117/58
[2021-05-12] MEDS ORDERED: REMDESIVIR 100 MG in SODIUM CHLORIDE 0.9% 250ML 250 ML IV SCH (21:00)
== END 2021-05-12 20:00 | disposition home or self-care (01) | DRG 177 ==
LOC: ED 21:38 → 3A 05-10 01:01
PROVIDERS: ADMIT Hospitalist; ATTEND Internal Medicine
PROC: XW033E5 Introduction of Remdesivir Anti-infective into Peripheral Vein, Percutaneous Approach, New Technology Group 5 (ICD-10-PCS; principal; 2021-05-11)
DX: U07.1 COVID-19 (principal); J96.01 Acute respiratory failure with hypoxia; J12.82 Pneumonia due to coronavirus disease 2019; I10 Essential (primary) hypertension; R73.9 Hyperglycemia, unspecified; E66.9 Obesity, unspecified; Z68.37 Body mass index [BMI] 37.0-37.9, adult
CPT/HCPCS: 36415; 71045; 80048; 80053; 82140; 82728; 82947; 83036; 83615; 84145; 84484; 85025; 85379; 86140; 87040; 93005; 94640; G0378; Q0162; J0456; J0696; J1100; J1644; J2405; J7030; J7050; J8540; U0003